=== PATIENT | female | born 1995 | race Caucasian/White ===

== ENCOUNTER 2021-04-03 06:35 | Inpatient (IN) ==
[2021-04-03] MEDS ORDERED: LR 1000 ML IV 1,000 ML IV ONE ×3 (06:44→07:33)
[2021-04-03] MEDS ORDERED: ZOFRAN INJ 4 MG VIAL ONE (06:44)
[2021-04-03] MEDS ORDERED: ANCEF 1 GRAM IV PREMIX* 2 G/100 ML BAG IV ONE (06:44)
[2021-04-03] MEDS ORDERED: REGLAN INJ 10 MG VIAL ONE (06:44)
[2021-04-03] MEDS ORDERED: DILAUDID INJ ONE (06:57)
[2021-04-03] MEDS ORDERED: PEPCID 20 MG IV PREMIX* 20 MG/50 ML BAG IV ONE (06:58)
[2021-04-03] MEDS ORDERED: TORADOL 30 MG VIAL ONE (07:24)
[2021-04-03] MEDS ORDERED: XYLOCAINE 2 % (PLAIN) ONE (07:24)
[2021-04-03] MEDS ORDERED: ATROPINE SULFATE ONE (07:24)
[2021-04-03] MEDS ORDERED: MARCAINE SPINAL ONE (07:24)
[2021-04-03] MEDS ORDERED: NEO-SYNEPHRINE INJ ONE (07:24)
[2021-04-03] MEDS ORDERED: ROBINUL ONE (07:24)
[2021-04-03] MEDS ORDERED: EPHEDRINE SULFATE INJ ONE (07:24)
[2021-04-03] MEDS ORDERED: VERSED ONE (07:24)
[2021-04-03] MEDS ORDERED: PITOCIN ONE (07:24)
[2021-04-03] MEDS ORDERED: DIPRIVAN VIAL ONE (07:24)
[2021-04-03] MEDS ORDERED: D5 1/2 NS 1L W PITOCIN 20 UNITS/L 20 UNITS/1,000 ML BAG IV ONE (08:46)
[2021-04-03] MEDS ORDERED: NARCAN INJ IVP PRN (09:01)
[2021-04-03] MEDS ORDERED: REGLAN INJ 10 MG VIAL IVP PRN (09:01)
[2021-04-03] MEDS ORDERED: ZOFRAN INJ 4 MG VIAL IVP PRN ×2 (09:01→09:18)
[2021-04-03] MEDS ORDERED: HYPERRHO S/D (or RHOGAM) IM PRN (09:01)
[2021-04-03] MEDS ORDERED: ADACEL or BOOSTRIX TDaP VACCINE IM ONE (09:01)
[2021-04-03] MEDS ORDERED: MYLICON TAB 80 MG CHEW PO PRN (09:01)
[2021-04-03] MEDS ORDERED: BENADRYL INJ 50 MG VIAL IVP PRN ×2 (09:01→09:18)
[2021-04-03] MEDS ORDERED: PERCOCET TAB 5/325 MG PO PRN (09:01)
[2021-04-03] MEDS ORDERED: PHENERGAN INJ 25 MG IM PRN ×2 (09:18→17:17)
[2021-04-03] MEDS ORDERED: DILAUDID INJ IVP PRN (09:18)
[2021-04-03] MEDS ORDERED: D5 1/2 NS 1000 ML 1,000 ML with PITOCIN 20 UNITS IV SCH ×2 (10:00)
[2021-04-03] MEDS ORDERED: PHENERGAN INJ 25 MG IM ONE (17:21)
[2021-04-03] MEDS: TORADOL 30 MG VIAL IVP PRN (22:05)
[2021-04-04 05:26] LABS: HEMATOCRIT 26.3 % (36.0-47.0); HEMOGLOBIN 9.3 g/dL (12.0-16.0)
[2021-04-04] MEDS: TORADOL 30 MG VIAL IVP PRN (07:17)
[2021-04-04] MEDS: PRENATAL PLUS PO SCH (08:36)
[2021-04-04] MEDS: COLACE CAP 100 MG PO SCH ×2 (08:36→21:30)
[2021-04-04] MEDS: PERCOCET TAB 5/325 MG PO PRN ×2 (12:42→23:18)
[2021-04-04] MEDS: BACTROBAN TOPICAL OINT TOP SCH ×2 (15:04→21:30)
[2021-04-04] MEDS: MOTRIN TAB 800 MG PO PRN (19:57)
[2021-04-05] MEDS: MOTRIN TAB 800 MG PO PRN (03:34)
[2021-04-05] MEDS: BACTROBAN TOPICAL OINT TOP SCH (05:43)
[2021-04-05 08:20] VITALS: BP 128/73
[2021-04-05] MEDS: PERCOCET TAB 5/325 MG PO PRN (08:33)
[2021-04-05] MEDS: COLACE CAP 100 MG PO SCH (08:33)
[2021-04-05] MEDS: PRENATAL PLUS PO SCH (08:33)
== END 2021-04-05 12:10 | disposition home or self-care (01) | DRG 787 ==
LOC: LD 06:35 → MED/SURG 09:46
PROVIDERS: ADMIT Specialist; ATTEND Specialist
DX: Z23 Encounter for immunization; Z3A.39 39 weeks gestation of pregnancy; Z37.0 Single live birth; O75.89 Other specified complications of labor and delivery; O36.0920 Maternal care for other rhesus isoimmunization, second trimester, not applicable or unspecified

== ENCOUNTER 2025-07-08 06:20 | Inpatient (IN) ==
[2025-07-08] MEDS: ANCEF VIAL 1 GRAM ONE (06:42)
[2025-07-08] MEDS ORDERED: LR 1,000 ML IV 1,000 ML IV ONE (06:44)
[2025-07-08] MEDS: OFIRMEV IV 1000 MG VIAL 1,000 MG/100 ML VIAL IV ONE (06:45)
[2025-07-08] MEDS: EPHEDRINE SULFATE INJ ONE (06:45)
[2025-07-08] MEDS: REGLAN INJ 10 MG VIAL ONE (06:45)
[2025-07-08] MEDS: ZOFRAN INJ 4 MG VIAL ONE (06:45)
[2025-07-08] MEDS: NS 100 ML IV 100 ML ONE (06:50)
[2025-07-08] MEDS: MARCAINE SPINAL ONE (06:50)
[2025-07-08] MEDS: XYLOCAINE 2 % (PLAIN) ONE (06:50)
[2025-07-08] MEDS: PRECEDEX INJ VIAL ONE (06:50)
[2025-07-08] MEDS: ANCEF VIAL 1 GRAM IVP ONE (06:50)
[2025-07-08] MEDS: LR 1,000 ML IV 1,000 ML IV SCH (06:53)
[2025-07-08] MEDS: BICITRA 30 ML PO ONE (06:55)
[2025-07-08] MEDS: PEPCID 20 MG VIAL ONE (06:56)
[2025-07-08] MEDS: PITOCIN ONE ×2 (06:56→22:19)
[2025-07-08] MEDS: BENADRYL INJ 50 MG VIAL ONE (07:11)
[2025-07-08 07:45] LABS: LACTATE DEHYDROGENASE 166.0 Units/L (81-234)
[2025-07-08 07:54] LABS: INR 1.04 (0.8-1.3)
[2025-07-08] MEDS: TORADOL 30 MG VIAL ONE (08:16)
[2025-07-08] MEDS ORDERED: REGLAN INJ 10 MG VIAL IVP PRN ×2 (08:20→09:38)
[2025-07-08] MEDS ORDERED: ZOFRAN INJ 4 MG VIAL IVP PRN (08:20)
[2025-07-08] MEDS ORDERED: DILAUDID INJ IVP PRN (08:20)
[2025-07-08] MEDS ORDERED: BENADRYL INJ 50 MG VIAL IVP PRN ×2 (08:20→09:38)
[2025-07-08] MEDS ORDERED: MYLICON TAB 80 MG CHEW PO PRN (09:38)
[2025-07-08] MEDS ORDERED: ADACEL or BOOSTRIX TDaP VACCINE IM ONE (09:38)
[2025-07-08] MEDS: PERCOCET TAB 5/325 MG PO PRN (12:05)
[2025-07-08] MEDS: ZOFRAN INJ 4 MG VIAL IVP PRN (12:06)
[2025-07-08] MEDS: HYPERRHO S/D (or RHOGAM) IM PRN (15:10)
[2025-07-08] MEDS: TORADOL 30 MG VIAL IVP PRN (16:01)
[2025-07-08] MEDS: D5 1/2 NS 1,000 ML 0 ML IV ONE (22:18)
[2025-07-08] MEDS: OXYTOCIN 20 UNIT/1,000 ML-NS 20 UNIT/1,000 ML PLAST..BAG IV SCH (22:19)
[2025-07-08] MEDS: DIPRIVAN VIAL 20 ML ONE ×2 (22:19)
[2025-07-08] MEDS: MOTRIN TAB 800 MG PO PRN (22:30)
[2025-07-08] MEDS: ADACEL or BOOSTRIX TDaP VACCINE IM ONE (22:53)
[2025-07-09 03:58] VITALS: O2SAT 100
[2025-07-09 07:47] VITALS: BP 135/76; PULSE 95; RESP 20; TEMP 97.9
[2025-07-09] MEDS: PRENATAL PLUS PO SCH (09:12)
[2025-07-09] MEDS: COLACE CAP 100 MG PO SCH (09:12)
[2025-07-09] MEDS: BACTROBAN TOPICAL OINT TOP SCH (09:12)
[2025-07-09] MEDS: PERCOCET TAB 5/325 MG PO PRN (09:15)
== END 2025-07-09 11:45 | disposition home or self-care (01) | DRG 787 ==
LOC: LD 06:20 → MED/SURG 09:38
PROVIDERS: ADMIT Specialist; ATTEND Specialist
DX: Z3A.39 39 weeks gestation of pregnancy; Z37.0 Single live birth; O99.113 Other diseases of the blood and blood-forming organs and certain disorders involving the immune mechanism complicating pregnancy, third trimester; O34.211 Maternal care for low transverse scar from previous cesarean delivery; N85.8 Other specified noninflammatory disorders of uterus